=== PATIENT | male | born 1950 | race Caucasian/White ===

== ENCOUNTER → 2018-10-17 | Outpatient (CLI) | payer OTHER ==
[~2018-10-17] MED LIST: AMIODARONE HCL200 MG PO; AVODART0.5 MG PO; COUMADIN PO; HYTRIN5 MG PO; METOPROLOL TART25 MG PO; SIMVASTATIN10 MG PO
--- NOTE | 2018-10-17 09:38 | Diagnostic Imaging Report ---
Exam: KUB - 2 views Clinical History: Renal calculi Comparison: KUB of 09/15/2011 Findings: Nonobstructive bowel gas pattern. No evidence of free intraperitoneal air. No evidence of abnormal calcification. No acute bony abnormality. Impression: No radiographically apparent renal calculi. Signed by: Ariana Guzman MD on 10/17/2018 9:34 AM
== END ==
LOC: RAD 09:03
PROVIDERS: ATTEND Urology
DX: N20.0 Calculus of kidney (principal)
CPT/HCPCS: 74018

== ENCOUNTER → 2019-08-10 | Outpatient (CLI) | payer OTHER ==
--- NOTE | 2019-08-10 10:26 | Diagnostic Imaging Report ---
X-ray abdomen KUB Comparison: 10/17/2018 History: Renal stones follow-up. No pain. Findings: The study is submitted on 2 images. Copious amounts of fecal matter in the bowel plus gas in the bowel obscure the urinary tract. There is no definite calcific density overlying the expected locations of the kidneys ureters or bladder. No other significant abnormality visualized. Impression: No definite urinary calculi visualized given the above limitations. Signed by: Main Montelongo MD on 08/10/2019 10:23 AM
== END ==
LOC: RAD 08:56
PROVIDERS: ATTEND Urology
DX: N20.0 Calculus of kidney (principal)
CPT/HCPCS: 74018

== ENCOUNTER → 2020-04-18 | Outpatient (CLI) | payer MEDICARE, OTHER | LOC: RAD 15:11 | PROVIDERS: ATTEND Urology | DX: N20.0 Calculus of kidney (principal) | CPT/HCPCS: 74018 ==

== ENCOUNTER → 2021-09-21 | Outpatient (CLI) | payer MEDICARE, OTHER | LOC: DX 13:22 | PROVIDERS: ATTEND Urology | DX: N20.0 Calculus of kidney (principal) | CPT/HCPCS: 74018 ==

== ENCOUNTER → 2022-04-27 | Outpatient (CLI) | payer MEDICARE, OTHER | LOC: RAD 11:45 | PROVIDERS: ATTEND Urology | DX: N20.0 Calculus of kidney (principal) | CPT/HCPCS: 74018 ==

== ENCOUNTER → 2022-10-12 | Outpatient (CLI) | payer MEDICARE, OTHER | LOC: CT 15:43 | PROVIDERS: ATTEND Urology | DX: N20.0 Calculus of kidney (principal) | CPT/HCPCS: 74176 ==

== ENCOUNTER → 2024-09-18 | Outpatient (REF) | payer MEDICARE, OTHER ==
[~2024-09-18] MED LIST changes: +ATORVASTATIN CA10 MG PO; +DIGOXIN125 MCG PO; +FISH OIL 1,0001 EAC7; +LEVOTHYROXINE50 MCG PO; +NEURONTIN300 MG PO; +WARFARIN SODIUM3 MG PO
== END ==
LOC: RAD 11:07
PROVIDERS: ATTEND Urology
DX: N20.0 Calculus of kidney (principal)
CPT/HCPCS: 74018